=== PATIENT | female | born 2005 | race Two or more races ===

== ENCOUNTER 2025-04-09 06:26 | Inpatient (IN) | payer OTHER ==
[~2025-04-09] VITALS: Ht 149.9 cm; Wt 3.2 kg
[2025-04-09 07:20] VITALS: BP 114/64
[2025-04-09] MEDS ORDERED: PRENATAL TABLE1 EAC1 PO (07:40)
[2025-04-09] MEDS ORDERED: RINGERS SOLUTION,LACTATED 1,000 ML IV SCH ×2 (07:45→22:30)
[2025-04-09 08:33] LABS: BASO % 0.6 % (0.1-1.2); EOS # 0.14 (0.04-0.54); EOS % 0.9 % (0.7-7.0); LYMPH # 2.87 (1.18-3.74); LYMPH % 19.3 % (19.3-53.1); MEAN PLATELET VOLUME 10.50 fl (9.4-12.4); MONO # 1.50 (0.24-0.82); MONO % 10.1 % (4.7-12.5); NEUT # 9.45 (1.56-6.13); NEUT % 63.8 % (34.0-71.1); RED CELL DISTRIBUTION WIDTH 13.9 % (11.6-14.4)
[2025-04-09 08:37] LABS: URINE APPEARANCE Clear; URINE BILIRRUBIN Negative (NEGATIVE); URINE BLOOD Moderate; URINE COLOR Yellow; URINE GLUCOSE Negative (NEGATIVE); URINE KETONE Trace (NEGATIVE); URINE LEUKOCYTE Small; URINE NITRATE Negative; URINE PROTEIN 30 (NEGATIVE); URINE UROBILINOGEN 1.0 E.U./dl
[2025-04-09 08:42] LABS: URINE BACTERIA 6483.4 uL (0.0-1933); URINE EPITHELIAL CELLS 26.7 uL (0.0-38.8); URINE RBC 22.5 uL (0.0-20.8); URINE WBC 87.8 uL (0.0-23.2)
[2025-04-09 08:47] LABS: INR 0.96
[2025-04-09 09:00] LABS: LYMPHOCYTE MAN 22.0 %; METAMYELOCYTE 1.0 %; MONOCYTE MAN 2.0 %; NEUTROPHILS MAN 70.0 %
[2025-04-09 09:14] LABS: URINE CAST 0.14 uL (0.0-1.40)
[2025-04-09 09:15] LABS: URINE CRYSTALS FEW /HPF
[2025-04-09 11:30] VITALS: BP 110/58
[2025-04-09] MEDS ORDERED: OXYTOCIN 20 UNITS/500ML RL PIGGYBAG IV SCH (11:45)
[2025-04-09 15:37] VITALS: BP 119/74
[2025-04-09 15:46] VITALS: BP 119/74
[2025-04-09] MEDS ORDERED: MORPHINE SULFATE 4 MG/ML CARTRIDGE IV ONE (16:00)
[2025-04-09] MEDS ORDERED: CEFOXITIN SODIUM 2,000 MG VIAL IV ONE (21:00)
[2025-04-09] MEDS ORDERED: OXYTOCIN 10 UNITS/ML VIAL IV ONE (21:00)
[2025-04-09] MEDS ORDERED: ERYTHROMYCIN BASE OPHT 1GM EACH TUBE OP ONE (21:00)
[2025-04-09] MEDS ORDERED: MORPHINE SULFATE 4 MG/ML VIAL IV ONE ×2 (22:10→23:10)
[2025-04-09] MEDS ORDERED: KETOROLAC TROMETHAMINE 60 MG VIAL IM STA (22:29)
[2025-04-09] MEDS ORDERED: OXYTOCIN 1,000 ML IV SCH (22:30)
[2025-04-09] MEDS ORDERED: CHLORHEXIDINE GLUCONATE 120 ML BOTTLE TOP ONE (22:30)
[2025-04-09] MEDS ORDERED: MORPHINE SULFATE 4 MG/ML VIAL IV PRN (22:45)
[2025-04-09 23:24] LABS: BASO % 0.3 % (0.1-1.2); EOS # 0.04 (0.04-0.54); EOS % 0.2 % (0.7-7.0); LYMPH # 2.15 (1.18-3.74); LYMPH % 11.4 % (19.3-53.1); MEAN PLATELET VOLUME 10.20 fl (9.4-12.4); MONO # 1.21 (0.24-0.82); MONO % 6.4 % (4.7-12.5); NEUT # 14.86 (1.56-6.13); NEUT % 78.9 % (34.0-71.1); RED CELL DISTRIBUTION WIDTH 13.6 % (11.6-14.4)
[2025-04-10 01:57] VITALS: BP 114/72
[2025-04-10 08:57] VITALS: BP 103/61; O2SAT 99
[2025-04-10 08:58] VITALS: BP 103/61; O2SAT 99
[2025-04-10] MEDS ORDERED: ACETAMINOPHEN 325 MG TABLET PO PRN (09:00)
[2025-04-10] MEDS ORDERED: OxyCODONE HCL 5 MG TABLET (ROXICODONE) PO PRN (09:00)
[2025-04-10 13:05] VITALS: BP 100/61; O2SAT 99
[2025-04-10 16:43] VITALS: BP 100/60
[2025-04-11 01:55] VITALS: BP 110/72
[2025-04-11 08:00] VITALS: BP 116/75
[2025-04-11] MEDS ORDERED: BISACODYL 10 MG/SUPP.RECT SUPP.RECT RECTAL STA (11:04)
[2025-04-11 16:00] VITALS: BP 104/56
[2025-04-12 00:26] VITALS: BP 101/67
[2025-04-12 08:00] VITALS: BP 114/75
[2025-04-12 16:40] VITALS: BP 108/73
== END 2025-04-12 18:28 | disposition home or self-care (01) | DRG 788 ==
LOC: LDR 06:26 → OB/GYN 22:05
PROVIDERS: ADMIT Obstetrics & Gynecology; ATTEND Obstetrics & Gynecology
PROC: 4A1HXCZ Monitoring of Products of Conception, Cardiac Rate, External Approach (ICD-10-PCS; 2025-04-09)
PROC: 10D00Z1 Extraction of Products of Conception, Low, Open Approach (ICD-10-PCS; principal; 2025-04-09 19:00)
DX: O82 Encounter for cesarean delivery without indication (principal); O62.0 Primary inadequate contractions; Z3A.39 39 weeks gestation of pregnancy; Z37.0 Single live birth